=== PATIENT | male | born 1975 | race African-American/Black ===

== ENCOUNTER 2018-11-01 13:34 | Emergency (ER) | payer SELFPAY ==
[~2018-11-01] VITALS: Ht 182.9 cm; Wt 77.5 kg
[2018-11-01 13:44] VITALS: BP 128/88
--- NOTE | 2018-11-01 14:13 | NUR ---
5 LEAD, B/P, SPO2 MONITORING IN PLACE. PT DROPS INTO MID 80'S SPO2 WITH PERIODS OF APNEA DURING SLEEP. PT RESPONDS WELL TO PAINFUL STIMULI TO AROUSE BUT MOSTLY SLEEPING
--- NOTE | 2018-11-01 16:53 | NUR ---
TASK RN: Patient/Caregiver given discharge instructions and they have confirmed that they understand the instructions. Patient ambulatory with steady gait.
--- NOTE | 2018-11-01 16:55 | NUR ---
pt a&ox4 no acute s/s of distress. pt reports no wallet. this rn never observed pt with wallet, not found in linen or room. pt updated on [facility] report that pt was found unresponsive in restroom of [facility]. pt called friend for ride
--- NOTE | 2018-11-01 16:57 | NUR ---
dr chavez to pt bedside. assessment in progress. ok to dc per
== END 2018-11-01 16:54 | disposition home or self-care (01) ==
LOC: ED 16:10
DX: F10.120 Alcohol abuse with intoxication, uncomplicated (principal)
CPT/HCPCS: 99283